=== PATIENT | male | born 1990 | race Caucasian/White ===

== ENCOUNTER 2018-08-10 23:06 | Emergency (ER) | payer OTHER ==
[~2018-08-10] VITALS: Ht 180.3 cm; Wt 75.7 kg
[2018-08-11] MEDS ORDERED: PEPCID AC20 MG PO (03:22)
[2018-08-11] MEDS ORDERED: INTESTINEX680 M1 PO (03:22)
[2018-08-11] MEDS ORDERED: LEVSIN/SL0.125 MG SL (03:22)
== END 2018-08-11 03:32 | disposition home or self-care (01) ==
LOC: ER 23:06
DX: K52.9 Noninfective gastroenteritis and colitis, unspecified (principal)